=== PATIENT | male | born 1960 | race Caucasian/White ===

== ENCOUNTER 2017-06-06 08:52 | Emergency (ER) | payer SELFPAY ==
[2017-06-06] MEDS ORDERED: Benzonatate 100 MG CAP ONE (10:34)
[2017-06-06] MEDS ORDERED: Oseltamivir 75 MG CAP ONE (10:34)
--- NOTE | 2017-06-06 12:06 | RAD ---
TWO VIEW CHEST: HISTORY: Cough. FINDINGS: The lungs appear clear. No infiltrate or vascular congestion. The heart size is upper normal. IMPRESSION: No acute lung process. POS: [facility]
== END 2017-06-06 10:41 | disposition home or self-care (01) ==
LOC: MADERS 08:52
DX: J11.1 Influenza due to unidentified influenza virus with other respiratory manifestations (principal); Z87.891 Personal history of nicotine dependence
CPT/HCPCS: 71046

== ENCOUNTER 2017-06-11 11:45 | Emergency (ER) | payer SELFPAY ==
[2017-06-11] MEDS ORDERED: Ondansetron ODT 4 MG TAB ONE (12:25)
[2017-06-11] MEDS ORDERED: Meclizine HCl 25 MG TAB ONE ×2 (12:25→12:32)
--- NOTE | 2017-06-11 12:40 | RAD ---
PA AND LATERAL VIEWS OF THE CHEST: HISTORY: Dyspnea. COMPARISON: 06/06/2017 FINDINGS: The heart size is borderline. The aorta is tortuous. The lungs are well expanded without focal area s of consolidation, pneumothorax, or pleural effusions. No acute osseous abnormalities are seen. IMPRESSION: No radiographic evidence of acute cardiopulmonary process. POS: [facility]
[2017-06-11 12:45] LABS: #Basophils 0.1 thou/uL (0.0-0.2); #Eosinphils 0.2 thou/uL (0.0-0.7); #Lymphocytes 1.6 thou/uL (1.20-3.40); #Monocytes 0.7 thou/uL (0.11-0.59); #Neutrophils 6.2 thou/uL (1.40-6.50); %Basophils 1.7 % (0.0-1.0); %Eosinophils 2.2 % (0.0-10.0); %Lymphocytes 18.1 % (21.0-51.0); %Monocytes 7.8 % (0.0-10.0); %Neutrophils 70.2 % (42.0-75.0); Hemoglobin 15.7 g/dL (14.0-18.0); Mean Corpuscular HGB CONC 34.3 g/dL (32.0-36.0); Mean Corpuscular Hemoglobin 31.3 pg (27.0-31.0); Mean Corpuscular Volume 91.2 fl (80.0-94.0); Mean Platelet Volume 8.5 fL (7.4-10.4); Platelet Count 253 thou/uL (130-400); Red Blood Cell (RBC) Count 5.02 mill/uL (4.70-6.10); White Blood Cell (WBC) Count 8.8 thou/uL (4.8-10.8)
[2017-06-11 12:57] LABS: ALT (SGPT) 20 U/L (8-55); AST (SGOT) 20 U/L (5-34); Albumin 3.8 g/dL (3.5-5.0); Alkaline Phosphatase 66 U/L (40-150); Anion Gap 15 mmol/L (10-20); BUN (Urea Nitrogen) 22 mg/dL (8.4-25.7); Bilirubin, Total 0.6 mg/dL (0.2-1.2); Calc. Creatinine Clearance 0 mL/min (70-130); Calcium 9.3 mg/dL (7.8-10.44); Carbon Dioxide 26 mmol/L (22-29); Chloride 107 mmol/L (98-107); Estimated GFR-MDRD 81; Globulin 2.9 g/dL (2.4-3.5); Glucose 102 mg/dL (70-105); Potassium 4.5 mmol/L (3.5-5.1); Protein, Total 6.7 g/dL (6.0-8.3); Sodium 143 mmol/L (136-145)
== END 2017-06-11 13:15 | disposition home or self-care (01) ==
LOC: MADERS 11:45
DX: R42 Dizziness and giddiness (principal); Z87.891 Personal history of nicotine dependence
CPT/HCPCS: 36415; 71046; 80053; 83880; 85025; Q0162